=== PATIENT | female | born 1950 | race Caucasian/White ===

== ENCOUNTER 2018-10-13 07:35 | Day surgery (SDC) | payer MEDICARE ==
[2018-10-12 10:35] LABS: HEMATOCRIT 41.9 % (36.0-48.0); HEMOGLOBIN 14.1 g/dL (12-16); MCH 29.3 pg (26.0-34.0); MCHC 33.7 g/dL (31.0-37.0); MCV 87.1 fL (80.0-100.0); MEAN PLATELET VOLUME 10.1 fL (7.4-10.4); RBC 4.81 10x6/uL (4.00-5.40); RDW 12.3 % (11.5-14.5); WBC 6.1 10x3/uL (4.8-10.8)
[2018-10-12 10:42] LABS: ANION GAP 10.5 mmol/L (8-16); CALCIUM 9.7 mg/dL (8.5-10.1); CARBON DIOXIDE 30.6 mmol/L (21.0-32.0); CREATININE - SERUM 1.1 mg/dL (0.6-1.3); POTASSIUM - SERUM 4.1 mmol/L (3.5-5.1)
[~2018-10-13] VITALS: Ht 170.2 cm; Wt 88.6 kg
--- NOTE | ~2018-10-13 | HEMODYNAMI ---
PATIENT:JIE FARRELL MEDICAL RECORD: [id number] : 54 [id number] ADMISSION DATE: 10/13/18 Generatedon:10/14/201814:04 Patient name: JIE FARRELL Patient #: [id number] SSN: : Date of study: 10/14/2018 Page: Of Hemodynamic Procedure Report Patient Data Patient Demographics Procedure consent was obtained First Name: JIE Gender: Female Last Name: JAMI : 1950 Middle Initial: KAI Age: 68 year(s) Patient #: [id number] Race: Unknown Additional ID: [id number] Contact details Address: [facility] [address] State: [place] City: [place] Zip code: [address] Past Medical History Allergies Allergen Reaction Date Comments Reported Iodine 10/14/2018 Admission Admission Data Admission Date: 10/13/2018 Admission Time: 7:35 Room #: .[facility]5 Height (in.): 67 BSA: 2 (m2) Height (cm.): 170.18 BMI: 30.54 (kg/m2) Weight (lbs.): 195 Weight (kg.): 88.45 Procedure Procedure Types Cath Procedure Peripheral Cath Diagnostic Procedure Wound Care Specialist Peripheral Procedures Nephro Nephrostomy w/ Ureteral Stent Procedure Description Procedure Date Procedure Date: 10/14/2018 Procedure Start Time: 13:41 Procedure Staff Name Function Noah Rivas MD Performing Physician Michelle Conn RT Tavern Car Attendant Nereida Jones RN Nurse Luz Elena Branch RN Nurse ELY RICO RT Scrub Procedure Data Cath Procedure Fluoroscopy Diagnostic fluoroscopy Total fluoroscopy Time: 0 time: 0 min min Contrast Material Contrast Material Type Amount (ml) Isovue 300 10 Procedure Medications Medication Administration Route Dosage Heparin Flush Bag added to field 2 bags (1000units/500ml NS) Lidocaine 1% added to field 20 unlisted medication 1 Hemodynamics Rest BSA: 2 (m2) O2 Consumption: Estimated: 187.14 (ml/min) O2 Consumption indexed: Estimated:93.57 (ml/min/m) Heart Rate: 71 (bpm) Snapshots Pre Cath Intra NCS Post Cath Vital Signs Time Heart Resp SPO2 etCO2 NIBP (mmHg) Rhythm Pain Sedation Rate (ipm) (%) (mmHg) Status Level (bpm) 12:47:42 70 18 98 35.3 150/77(121) NSR 0 (11) 9(A) , No pain 12:52:07 81 14 99 39.1 150/88(123) NSR 0 (11) 9(A) , No pain 12:56:25 73 15 99 26.3 157/88(130) NSR 0 (11) 9(A) , No pain 13:00:39 74 18 100 36.1 146/92(136) NSR 0 (11) 9(A) , No pain 13:04:55 71 18 99 34.6 151/86(122) NSR 0 (11) 9(A) , No pain 13:09:54 74 19 99 36.1 Measuring NSR 0 (11) 9(A) , No pain 13:10:14 75 19 98 34.6 151/70(120) NSR 0 (11) 9(A) , No pain 13:14:32 72 13 99 26.3 144/85(104) NSR 0 (11) 9(A) , No pain 13:18:54 72 14 99 35.3 158/78(121) NSR 0 (11) 9(A) , No pain 13:23:13 74 12 100 34.5 149/90(121) NSR 0 (11) 9(A) , No pain 13:27:29 83 18 100 33.8 142/82(112) NSR 0 (11) 9(A) , No pain 13:31:45 80 16 99 33.8 135/81(109) NSR 0 (11) 9(A) , No pain 13:36:44 82 13 98 31.5 Measuring NSR 0 (11) 9(A) , No pain 13:36:56 81 12 98 31.5 135/88(114) NSR 0 (11) 9(A) , No pain 13:41:08 80 16 98 34.5 142/80(112) NSR 0 (11) 9(A) , No pain 13:45:16 81 15 99 36 144/80(115) NSR 0 (11) 9(A) , No pain 13:50:09 79 15 100 35.3 137/80(114) NSR 0 (11) 9(A) , No pain 13:54:25 89 14 97 35.3 140/78(107) NSR 0 (11) 9(A) , No pain 13:59:05 87 16 98 33 138/80(105) NSR 0 (11) 9(A) , No pain 14:03:25 84 16 99 33.8 148/79(107) NSR 0 (11) 9(A) , No pain Medications Time Medication Route Dose Verified Delivered Reason Notes Effe ctiveness by by 12:46:58 Heparin Flush added 2 Noah Zamora used for Bag to bags Rob Rivas procedure (1000units/500ml field MD SOTO NS) 12:47:11 Lidocaine 1% added 20ml Noah Zamora for local to vial Rob Rivas anesthetic field MD SOTO 13:42:45 cefepime iv 1 gm Noah Laguna Per Rob Branch RN physician MD Procedure Log Time Note 12:28:04 Patient Height : 67 inches 12:28:08 Patient Weight : 195 lbs 12:28:36 Use device set IR Diagnostic 12:28:39 Sterile Angiographic Pack opened to sterile field. 12:28:40 Bag Decanter (2002S) opened to sterile field. 12:29:38 KIT, INTRODUCER ACCUSTICK II W/C ([id number]) opened to sterile field. 12:29:39 BAG, DRAINAGE EMPTY 600ML W/BREANNA (DTC805) opened to sterile field. 12:29:39 BENTSON 145cm wire ([id number]) opened to sterile field. 12:36:33 Time tracking: Regular hours (M-F 7:00 - 5:00) 12:37:40 Patient received from Med/Surg to IR Alert and oriented. Tansferred to table in Prone position. 12:37:45 Signed procedure consent form obtained from patient. 12:37:51 H&P Date Dictated: 10/14/2018 Within 30 days and on chart.. 12:37:56 Pre-procedure instructions explained to patient. 12:37:57 Pre-op teaching completed and patient verbalized understanding. 12:38:02 Family in waiting room. 12:38:05 Patient NPO since Midnight. 12:38:13 Patient allergic to Iodine 12:38:18 Is the patient allergic to Iodine/contrast media? Yes. 12:38:21 Was the patient premedicated? Yes 12:40:37 Patient diabetic? Yes. 12:40:39 If diabetic: On Metformin? Yes 12:40:54 If on Metformin: Last Dose? 10/12/2018 12:41:00 Is patient on blood thinner?No 12:46:33 Vital chart was started 12:46:58 Heparin Flush Bag (1000units/500ml NS) 2 bags added to field was administered by Noah Rivas MD; used for procedure; 12:47:11 Lidocaine 1% 20ml vial added to field was administered by Noah lopez MD; for local anesthetic; 12:49:20 - 12:49:29 ----Pre-sedation anethsthesia assessment.---- 12:49:36 Previous problem with sedation/anesthesia? No ? 12:49:41 Snore? Yes 12:49:46 Sleep apnea? No 12:49:50 Deviated septum? No 12:49:53 Opens mouth fully? Yes 12:49:57 Sticks out tongue? Yes 12:50:01 Airway obstruction? No ? 12:50:06 Dentures? No ? 12:50:15 IV patent on arrival in left hand with D5/.45%NaCl at [facility]. 12:50:24 Right Renal was prepped with chlora-prep and draped in sterile fashion. 12:50:27 - 12:50:35 ECG and BP/O2 sat monitors applied to patient. 12:50:36 Baseline sample Acquired. 12:50:38 Full Disclosure recording started 12:50:39 - 13:39:24 seeanesthesia notes for monitoring of patient during procedure 13:39:28 Physician arrived 13:39:41 --------ALL STOP TIME OUT------ 13:39:42 Final Timeout: patient, procedure, and site verified with staff and physician. All members of the team are in agreement. 13:40:01 Procedure started. 13:41:05 Local anesthetic to right renal area with Lidocaine 1% by Noah lopez MD.INITIAL ACCESS ONLY 13:42:45 cefepime 1 gm iv was administered by Luz Elena Branch RN; Per physician; 13:43:24 CHIBA 20 X 15 needle opened to sterile field. 13:51:16 Abscession 8Fr drainage catheter ([id number]) opened to sterile field. 13:53:55 STOPCOCK 3-Way Large Bore ([id number]) opened to sterile field. 13:54:51 SUTURE ETHILON 2-0 BLK MONO FS opened to sterile field. 13:56:22 Procedure ended.(Physican Out) 13:56:41 Fluoroscopy time 00.00 minutes. 13:56:54 Contrast amount:Isovue 300 10ml. 13:56:56 Procedure and supply charges have been captured, reviewed, submitted an d are correct. 14:02:04 Report given to Med/Surg. 14:04:18 Vital chart was stopped Device Usage Item Name Manufacture Quantity Catalog Hospital Part Current [facility] l Lot# / Number Charge Number Stock Stock Serial# Code Sterile Cardinal 1 [id number] 5 Angiographic Health Pack Bag Decanter Microtek 1 [id number] 96470 [id number] 5 () Medical Inc. KIT, [place] 1 [id number] 355881 881729 139694 5 [id number] INTRODUCER Scientific ACCUSTICK II W/C ([id number]) BAG, [facility] 1 [id number] 535874 982345 833442 5 DRAINAGE EMPTY 600ML W/BREANNA (BHH678) BENTSON [facility] 1 [id number] 970839 326374 5 145cm wire (N88081) CHIBA 20 X [facility] 1 X11530 906607 086464 5 [id number] 15 needle Abscession Angiodynamics 1 [id number] 926774 593623 863146 5 8Fr drainage catheter ([id number]) [facility] 1 W14187 838984 2491 891801 5 [id number] 3-Way Large Bore (U12467) SUTURE Ethicon 1 664H 582160 298959 5 ETHILON 2-0 BLK MONO FS Signature Audit [place] Stage Time Signature Unsigned Intra-Procedure 10/14/2018 Michelle Conn 2:04:14 PM RT(R) [facility] [address] [place] [address]
[~2018-10-13 07:35] MED LIST: GLUCOPHAGE1000 MG PO; LEVEMIR IN100 UNITS/ SC; LEVOXYL175 MCG PO; LISINOPRIL20 MG PO; METOPROLOL-HCT1 EACH PO; MULTI-DAY VITAM1 TAB PO; NORVASC5 MG PO; PAXIL40 MG PO
[2018-10-13 10:48] VITALS: BP 116/73; BMI 30.9
--- NOTE | 2018-10-13 13:37 | NUR ---
LITHOTRIPSY STOP TIME 2697
--- NOTE | 2018-10-13 13:45 | NUR ---
PATIENT IS BEING ADMITTED AND DR BUENO NEEDED FAMILY TO BE NOTIFIED. LOOKED IN COMPUTER AND NEXT OF KIN AND EMERGENCY CONTACT SHOWED TO BE PT. CALLED THE NUMBER BY PATIENT'S NAME AND REACHED AN ANSWERING MACHINE. RR CALLED AND SPOKE WITH SUKHDEEP DONATO RN REGARDING ANY NAME OF NUMBER ON FRONT OF CHART TO CONTACT. RELATED THERE WAS NOT ANY INFORMATION REGARDING NEXT OF KIN. SUKHDEEP RELATED HE WOULD HAVE RECOVERY NURSE JANES PARHAM RN ASK PATIENT FOR A CONTACT NAME AND NUMBER ONCE SHE WAS MORE AWAKE. WILL CALL AND INFORM FAMILY WHEN NAME AND NUMBER IS OBTAINED. PERSONAL BELONGINGS IN A BAG TO TAKE TO PATIENT ONCE IS SETTLED IN HER ROOM.
[2018-10-13 15:09] VITALS: BP 151/73
--- NOTE | 2018-10-13 15:12 | NUR ---
ARRIVED TO ROOM 2215 VIA STRETCHER AWAKE AND ALERT. RESP EVEN AND UNLABORED WITH NO DISTRESS NOTED. CAN VOICE NEEDS AND WANTS. NO C/O NOTED OR VOICED. C/O LOWER BACK PAIN RATING 8/10 ON PAIN SCALE.C/L IN REACH AT BEDSIDE.
--- NOTE | 2018-10-13 15:26 | OP ---
PATIENT NAME: JIE FARRELL MEDICAL RECORD: [id number] :54 LOCATION:[facility] ADMISSION DATE: SURGEON: CARMELO BUENO MD DATE OF OPERATION: 10/13/2018 SURGEON: Carmelo Bueno MD ANESTHESIA: General anesthesia by Bernie Burnette CRNA. DIAGNOSIS: Right proximal ureteral stone 10 x 25 mm in size. PROCEDURE: Right ESWL times 4000 shocks. FINDINGS: Large radiodense proximal ureteral stone about 10 x 25 mm in size. On cystoscopy, there are single ureteral orifices bilaterally, but no bladder tumors. I am unable to get a wire past the stone. ESTIMATED BLOOD LOSS: None. CLINICAL HISTORY: This is a 68-year-old female, who was referred with a 10 mm wide right proximal ureteral stone with severe right hydronephrosis on CT scan. This scan was done at another facility. The scan also shows large multiple gallstones in the gallbladder up to 3 cm in size. She continues to have right flank pain. She comes today to have lithotripsy as well as insertion of a right ureteral stent. SHE HAS ANAPHYLAXIS WITH IODINE FROM IVP CONTRAST. Therefore, we had to try to do all the procedures without IODINE. DESCRIPTION OF PROCEDURE: The patient was given induction of general anesthesia. The stone was visualized in 2 planes and we started treatment of the stones immediately. We moved up and down along the stone length to fragment the entire length of the stone. While the lithotripsy was proceeding, I placed a cystoscope in. Attempts to get a sensor and then a Glidewire past the stones were with futile. It just would not get past the stone. Therefore, I waited until the entire lithotripsy had been done and 4000 shocks had been administered to the stone. The stone was seen to break up radiographically. I was hoping that with the stone now broken up, I would be able to get a guidewire wire past it, but again I was unsuccessful to get any wire past the stone. I will place her in 23-hour observation. I will have interventional radiology place a right nephrostomy tube and hopefully try to pass a right antegrade ureteral stent. TRANSINT:[id number] Voice Confirmation ID: [id number] DOCUMENT ID: [id number] CARMELO BUENO MD at 0886 CC: [id number] DICTATION DATE: 10/13/18 1354 BARK SKINNER: 10/13/[address] [facility] [address] [id number]
--- NOTE | 2018-10-13 17:08 | NUR ---
SPOKE WITH PATIENT'S DAUGHTER. EXPLAINED DR BUENO ADMITTED HER AND SCHEDULED A PROCEDURE WITH IR TOMORROW, INFORMED MARGARITO WE WERE NOT ABLE TO REACH HER DUE TO NEXT OF KIN AND PERSON TO NOTIFY WAS THE PATIENT'S NAME AND NUMBER. GOT DAUGHTER'S NUMBER AND PUT ON INSIDE OF PATIENT'S CHART ON MED SURG. TOOK PATIENT'S PERSONAL BELONGINGS TO HER AND INFORMED HER THAT HER DAUGHTER SAID SHE WOULD BE COMING BY WHEN SHE GOT OFF WORK. VERBALIZED UNDERSTANDING.
[2018-10-13 17:09] VITALS: BP 121/64; Ht 170.2 cm; Wt 88.6 kg
[2018-10-13 17:59] VITALS: BP 121/64
[2018-10-13 19:58] VITALS: BP 108/65
--- NOTE | 2018-10-13 21:20 | NUR ---
PT C/O BURNING PAIN WHEN VOIDING. CALLED DR. BUENO FOR MED ORDERS. GAVE NORCO-10 PO. PT STATED WHEN REASSESSED THAT PAIN WAS GONE AND SHE IS VOIDING WITH LESS DIFFICULTY.
[2018-10-14] VITALS: BP 103/64
[2018-10-14 04:00] VITALS: BP 129/76
[2018-10-14 04:45] LABS: BASOPHILS 0.3 % (0-2); EOSINOPHILS 0 % (0-7); HEMOGLOBIN 13.5 g/dL (12-16); IMMATURE GRANULOCYTES 0.5 % (0-5); LYMPHOCYTES 10.7 % (15-50); MCH 29.4 pg (26.0-34.0); MCHC 32.9 g/dL (31.0-37.0); MEAN PLATELET VOLUME 11.2 fL (7.4-10.4); MONOCYTES 0.9 % (2-11); NEUTROPHILS 87.6 % (40-80); RBC 4.59 10x6/uL (4.00-5.40); RDW 12.2 % (11.5-14.5); WBC 6.5 10x3/uL (4.8-10.8)
[2018-10-14 04:48] LABS: MCV 89.3 fL (80.0-100.0); PLATELET COUNT 228 10x3/uL (130-400)
[2018-10-14 04:53] LABS: INR 1.06 (0.85-1.17); PROTIME 13.3 SECONDS (11.6-15.0)
[2018-10-14 05:07] LABS: ANION GAP 15.4 mmol/L (8-16); CARBON DIOXIDE 24.8 mmol/L (21.0-32.0); CREATININE - SERUM 1.2 mg/dL (0.6-1.3)
[2018-10-14 05:09] LABS: POTASSIUM - SERUM 5.2 mmol/L (3.5-5.1)
--- NOTE | 2018-10-14 05:22 | NUR ---
CRITICAL LAB 444 - CALLED DR. BUENO. ORDERED SLIDING SCALE INSULIN AC/HS FOR PT. TREAT ACCORDINGLY.
--- NOTE | 2018-10-14 08:00 | NUR ---
ASSESSMENT PER FLOW SHEET. PT IS WITHOUT DISTRESS.NPO FOR PROCEDURES
[2018-10-14 08:59] VITALS: BP 137/75
--- NOTE | 2018-10-14 10:42 | NUR ---
PT IS ANGRY THAT SHE HAS NOT GONE FOR HER PROCEDURE. SHE IS WANTING TO LEAVE THE HOSPITAL. CALL TO DR BUENO
--- NOTE | 2018-10-14 12:30 | NUR ---
TO IR VIA BED
--- NOTE | 2018-10-14 14:00 | NUR ---
BACK FROM IR VIA BED.PT IS WITHOUT DISTRESS. RIGHT NEPHROSTOMY TUBE HAS VERY DARK TEA COLORED URINE IN IT. PT DENIES NEEDS.CALL LIGHT IN REACH.
[2018-10-14 14:59] LABS: APPEARANCE TURBID (CLEAR); BILIRUBIN NEGATIVE (NEGATIVE); COLOR BROWN (YELLOW); GLUCOSE 1000 mg/dL (NEGATIVE); KETONE NEGATIVE (NEGATIVE); NITRITE NEGATIVE (NEGATIVE); PROTEIN 1+ mg/dL (NEGATIVE); SPECIFIC GRAVITY 1.015 (1.005-1.020); UROBILINOGEN NORMAL (NORMAL)
[2018-10-14 15:01] LABS: RED CELLS - URINE >50 /hpf (0-5); WHITE CELLS - URINE 0-5 /hpf (0-5)
[2018-10-14 15:24] LABS: BACTERIA MODERATE /hpf (NONE SEEN); EPITHELIAL CELLS 0-5 /hpf (0-5)
[2018-10-14] MEDS ORDERED: HYDROCODON-ACE1 EA10 PO (16:12)
--- NOTE | 2018-10-14 17:51 | NUR ---
LEFT UNIT VIA WHEELCHAIR FOR TRANSPORT HOME
--- NOTE | 2018-10-14 17:51 | NUR ---
IV DCD WITH CATH TIP INTACT. DISCHARGE INSTRUCTIONS WITH PT AND FAMILY. DRAIN TEACHING WITH PT AND FAMILY, STATED UNDERSTANDING
== END 2018-10-14 17:52 | disposition home or self-care (01) ==
LOC: D.MS 07:35 → D.PAN 07:35 → D.OPS 13:15 → D.PAN 13:15 → D.MS 14:50 → D.PAN 10-14 17:52
PROVIDERS: Anesthesiology; Radiology Diagnostic Radiology; ATTEND Urology
DX: N20.1 Calculus of ureter (principal)

== ENCOUNTER 2018-10-27 06:33 | Inpatient (IN) | payer MEDICARE ==
[2018-10-26 12:58] LABS: BASOPHILS 0.3 % (0-2); EOSINOPHILS 1.6 % (0-7); HEMATOCRIT 41.7 % (36.0-48.0); HEMOGLOBIN 14.2 g/dL (12-16); IMMATURE GRANULOCYTES 0.2 % (0-5); LYMPHOCYTES 19.7 % (15-50); MCH 29.4 pg (26.0-34.0); MCHC 34.1 g/dL (31.0-37.0); MCV 86.3 fL (80.0-100.0); MEAN PLATELET VOLUME 9.8 fL (7.4-10.4); MONOCYTES 5.8 % (2-11); NEUTROPHILS 72.4 % (40-80); PLATELET COUNT 238 10x3/uL (130-400); RBC 4.83 10x6/uL (4.00-5.40); RDW 12.2 % (11.5-14.5); WBC 11.1 10x3/uL (4.8-10.8)
[2018-10-26 13:01] LABS: ANION GAP 13.8 mmol/L (8-16); CALCIUM 9.7 mg/dL (8.5-10.1); CARBON DIOXIDE 28.3 mmol/L (21.0-32.0); CREATININE - SERUM 1.1 mg/dL (0.6-1.3); POTASSIUM - SERUM 4.1 mmol/L (3.5-5.1)
[2018-10-26 13:12] LABS: APTT 22.9 SECONDS (22.8-39.4); PROTIME 12.7 SECONDS (11.6-15.0)
--- NOTE | ~2018-10-27 | HEMODYNAMI ---
PATIENT:JIE FARRELL MEDICAL RECORD: [id number] : 54 LOCATION:[facility]# [id number] ADMISSION DATE: 10/27/18 Generatedon:10/27/20189:28 Patient name: JIE FARRELL Patient #: [id number] SSN: : Date of study: 10/27/2018 Page: Of Hemodynamic Procedure Report Patient Data Patient Demographics Procedure consent was obtained First Name: JIE Gender: Female Last Name: JAMI : 1950 [facility] Initial: KAI Age: 68 year(s) Patient #: [id number] Race: Unknown Additional ID: [id number] Contact details [address] [address] [place], [place] [address] State: [place] City: [place] Zip code: [address] Past Medical History Allergies Allergen Reaction Date Comments Reported Iodine 10/14/2018 Admission Admission Data Admission Date: 10/27/2018 Admission Time: 6:33 Procedure Procedure Types Cath Procedure Peripheral Cath Diagnostic Procedure Nephro Perc Neph Uret Cath Procedure Description Procedure Date Procedure Date: 10/27/2018 Procedure Start Time: 9:05 Procedure Staff Name Function Eric Tafoya MD Performing Physician Prabhjot Morataya RT Monitor ELY RICO RT Scrub Luz Elena Branch RN Nurse Nereida Jones RN Nurse Procedure Data Cath Procedure Fluoroscopy Diagnostic fluoroscopy Total fluoroscopy Time: 5.3 time: 5.3 min min Diagnostic fluoroscopy Total fluoroscopy dose: 60 dose: 60 mGy mGy Contrast Material Contrast Material Type Amount (ml) Isovue 300 10 Procedure Medications Medication Administration Route Dosage Heparin Flush Bag added to field 1 bags (1000units/500ml NS) Lidocaine 1% added to field 20 Versed I.V. 1 mg Fentanyl I.V. 50 mcg unlisted medication 1 Hemodynamics Rest Heart Rate: 69 (bpm) Snapshots Pre Cath Intra NCS Post Cath Vital Signs Time Heart Resp SPO2 etCO2 NIBP (mmHg) Rhythm Pain Sedation Rate (ipm) (%) (mmHg) Status Level (bpm) 8:51:25 72 26 94 0 159/90(128) NSR 0 (11) 10(A) , No pain 8:55:48 68 15 98 31.7 164/85(126) NSR 0 (11) 10(A) , No pain 9:00:06 67 16 98 31.7 149/81(112) NSR 0 (11) 10(A) , No pain 9:04:26 66 16 98 31 147/79(122) NSR 0 (11) 8(A) , No pain 9:08:44 68 16 98 31.7 150/80(116) NSR 0 (11) 8(A) , No pain 9:13:04 67 12 89 35.5 141/81(98) NSR 0 (11) 8(A) , No pain 9:17:20 67 12 95 34.7 148/82(108) NSR 0 (11) 8(A) , No pain 9:21:40 68 13 94 35.5 146/81(100) NSR 0 (11) 8(A) , No pain 9:25:56 68 12 94 34.7 140/85(103) NSR 0 (11) 8(A) , No pain Medications Time Medication Route Dose Verified Delivered Reason Notes Effec tiveness by by 9:01:02 Heparin Flush added 1 Eric Reyes used for Bag to bags Tafoya Tafoya procedure (1000units/500ml field MD SOTO NS) 9:01:18 Lidocaine 1% added 20ml Eric Reyes for local to vial Tafoya Tafoya anesthetic field MD SOTO 9:03:02 cefepime ivpb 1 gm Eric Laguna Per Michelet Branch RN physician 9:10:03 Versed I.V. 1 mg Eric Laguna for Michelet Branch RN sedation 9:10:15 Fentanyl I.V. 50 Eric Laguna for mcg Tafoyatoribio Branch RN sedation Procedure Log Time Note 8:41:35 Prabhjot Morataya RT (R) (CV) sent for patient. Start room use. 8:41:54 Time tracking: Regular hours (M-F 7:00 - 5:00) 8:42:01 Plan of Care:Hemodynamics will remain stable., Cardiac rhythm will remain stable., Comfort level will be maintained., Respiratory function will remain adequate., Patient/ family verbilizes understanding of procedure., Procedure tolerated without complication., Recovers from procedure without complications.. 8:42:11 Patient received from Outpatients to IR Alert and oriented. Tansferred to table in Supine position. 8:42:12 Correct patient and procedure confirmed by team. 8:42:14 Signed procedure consent form obtained from patient. 8:42:15 ECG and BP/O2 sat monitors applied to patient. 8:42:16 Full Disclosure recording started 8:42:21 Use device set IR Diagnostic 8:42:23 Bag Decanter (2002) opened to sterile field. 8:42:23 Sterile Angiographic Pack opened to sterile field. 8:42:32 8:42:39 H&P Date Dictated: 10/27/2018 H&P Addendum completed by physician on day of procedure. (MUST COMPLETE FOR ALL OUTPATIENTS). 8:42:40 Pre-procedure instructions explained to patient. 8:42:40 Pre-op teaching completed and patient verbalized understanding. 8:42:44 Family unavailable. 8:42:46 Patient NPO since Midnight. 8:42:52 Is the patient allergic to Iodine/contrast media? Yes. 8:42:57 Was the patient premedicated? Yes 8:42:59 Is patient on blood thinner?No 8:43:01 Patient diabetic? Yes. 8:43:03 If diabetic: On Metformin? No 8:43:04 8:43:05 ----Pre-sedation anethsthesia assessment.---- 8:43:09 Previous problem with sedation/anesthesia? No ? 8:43:10 Snore? Yes 8:43:16 Sleep apnea? No 8:43:20 Deviated septum? No 8:43:21 Opens mouth fully? Yes 8:43:22 Sticks out tongue? Yes 8:43:24 Airway obstruction? No ? 8:43:26 Dentures? No ? 8:45:21 IV patent on arrival in right hand with 0.9% NaCl at [facility]. 8:45:32 Lumbar area was prepped with chlora-prep and draped in sterile fashion 8:45:34 Alarms reviewed by R. N. 8:45:34 Sharps counted by scrub and verified by R.N. 8:50:18 Vital chart was started 8:56:31 Baseline sample Acquired. 9:01:02 Heparin Flush Bag (1000units/500ml NS) 1 bags added to field was administered by Eric Tafoya MD; used for procedure; 9::18 Lidocaine 1% 20ml vial added to field was administered by Eric Tafoya MD; for local anesthetic; 9:03:02 cefepime 1 gm ivpb was administered by Luz Elena Branch RN; Per physician; 9:04:00 Physician arrived 9:04:01 --------ALL STOP TIME OUT------ 9:04:01 Final Timeout: patient, procedure, and site verified with staff and physician. All members of the team are in agreement. 9:04:05 Lumbar site verified by team. 9:04:13 Maximum allowable Isovue 300 dose 300\ml. Physician notified. (300ml for normal creatinines. For patients with creatinine of 1.7 or higher multiply weight(kg) x 5 divided by creatinine.) 9:04:17 Fire Safety Assessment: A--An alcohol-based skin anteseptic being used preoperatively., C--Open oxygen or nitrous oxide is being used. 9:04:22 Sedation plan: IV Moderate Sedation Medication:Versed, Fentanyl 9:05:01 Procedure started. 9:05:09 Local anesthetic toRIGHT Lumbar area with Lidocaine 1% by Eric Tafoya MD.INITIAL ACCESS ONLY 9:05:44 GLIDE CATHETER 5FR ANGLED 65cm (CG507) opened to sterile field. 9:05:44 [facility] .035 145 glide wire (S40800) opened to sterile field. 9:10:03 Versed 1 mg I.V. was administered by Luz Elena Branch RN; for sedation; 9:10:15 Fentanyl 50 mcg I.V. was administered by Luz Elena Branch RN; for sedation; 9:17:56 GLIDE WIRE Angled Super Stiff 180cm ([id number]) opened to sterile field. 9:20:46 Tegaderm 6 x 8 (1628) opened to sterile field. 9:20:59 Procedure ended.(Physican Out) 9:21:31 Fluoroscopy time 05.30 minutes. 9:21:38 Flurop Dose total: 60 9:21:38 Fluoroscopy dose: 60 mGy 9:21:51 Contrast amount:Isovue 300 10ml. 9:23:36 Sharps counted by scrub and verified by R.N. 9:23:38 Insertion/operative site no bleeding no hematoma. 9:23:56 Post-op/insertion site Right Lumbar area dressed using a 4 x 4 and Tegaderm. 9:24:07 Post Lumbar area:stable 9:25:03 Post procedure instruction explained to patient.Patient verbalizes understanding. 9:25:04 Procedure and supply charges have been captured, reviewed, submitted and are correct. 9:27:18 Report given to Outpatients. 9:27:36 Patient transfered to Outpatients with Stretcher. 9:28:17 Vital chart was stopped Device Usage Item Name Manufacture Quantity Catalog Hospital Part Current Minimal Lot# / Number Charge Number Stock Stock Serial# Code Bag Decanter Microtek 1 [id number] 5 () Medical Inc. Sterile Cardinal 1 [id number] 910324 665539 5 Angiographic Health Pack GLIDE Terumo 1 [id number] 321219 437160 5 CATHETER 5FR ANGLED 65cm (CG507) [facility] 1 [id number] 290336 095890 978124 5 [id number] .035 145 glide wire ([id number]) GLIDE WIRE Terumo 1 CG2280 149735 010145 5 Angled Super Stiff 180cm (NP3226) Tegaderm 6 x 3M 1 1628 [id number] [id number] 5 8 (1628) Signature Audit [place] Stage Time Signature Unsigned Intra-Procedure 10/27/2018 Prabhjot 9:28:13 AM [place] RT (R) (CV) Signatures Monitor : Prabhjot Signature : [place] RT Date : Time : [address] [place] [address]
[~2018-10-27 06:33] MED LIST changes: +HYDROCODON-ACE1 EA10 PO
[2018-10-27 08:11] VITALS: BP 148/90; BMI 30.4
--- NOTE | 2018-10-27 15:09 | NUR ---
SUPINE ON BED FOR CYSTO, THEN FLIPPED PRONE ONTO PADDED LARA FRAME. PRESSURE POINTS PADDED.
[2018-10-27 17:19] VITALS: BP 121/70
[2018-10-27 17:37] VITALS: BP 121/70; BMI 30.4
--- NOTE | 2018-10-27 17:43 | NUR ---
TO ROOM 2217 FROM PACU VIA BED. PT IS WITHOUT DISTRESS.RIGHT NEPHROSTOMY TUBE HAD RED TINTED URINE IN BAG. RODRIGUEZ TO GRAVITY WITH RED TINTED URINE.PT DENIES PAIN.ORIENTATION TO ROOM.CALL LIGHT IN REACH.
--- NOTE | 2018-10-27 18:51 | NUR ---
PT IS EATING DINNER. SHE IS WITHOUT DISTRESS.FAMILY AT BEDSIDE
[2018-10-27 20:38] VITALS: BP 117/57
--- NOTE | 2018-10-27 22:15 | NUR ---
PT ALERT & ORIENTED. FSBS 579 - ORDERED STAT GLUCOSE AND REPORTED TO DR. BUENO. PUT PT ON SLIDING SCALE. GAVE 28 UNITS REG INSULIN PER SS AND PROVIDED SNACK. LAB GLUCOSE TAKEN BEFORE INSULIN GIVEN RESULTED 506. WILL RECHECK IN ONE HOUR. NO OTHER NEEDS. WILL CONTINUE TO MONITOR.
[2018-10-28 01:22] VITALS: BP 95/48
--- NOTE | 2018-10-28 04:14 | NUR ---
RIGHT HAND IV LEAKING. REMOVED CATHETER INTACT. NO IV FLUIDS OR MEDS ORDERED. PT SAYS SHE WOULD LIKE IV LEFT OUT FOR NOW IF NOT NEEDED. OXYGEN SAT 97-98% ON 1L/NC. REMOVED OXYGEN AND WILL MONITOR. PT ASKED TO HAVE BREAK FROM SCD'S. TOOK THOSE OFF FOR NOW ALSO.
[2018-10-28 05:40] VITALS: BP 88/46
--- NOTE | 2018-10-28 07:50 | NUR ---
PT RESTING IN BED NO ACUTE DISTRESS. REPORTS PAIN 6/10 AT THIS TIME, BUT VOICES WISHES FOR PAIN MEDICATION TO BE ADMINISTERED WITH BREAKFAST. F/C PATENT/RIGHT NEPHROSTOMY PATENT TO GRAVITY, DRAINING BLOOD COLORED URINE. DENIES FURTHER NEEDS AT THIS TIME. CL WITHIN REACH. ENCOURAGED TO CALL WITH NEEDS. CONTINUE POC
[2018-10-28 08:50] VITALS: BP 92/47
--- NOTE | 2018-10-28 11:09 | OP ---
PATIENT NAME: JIE FARRELL MEDICAL RECORD: [id number] LOCATION:[id number] ADMISSION DATE:10/27/18 SURGEON: LAURA BUENO MD DATE OF OPERATION: 10/27/2018 SURGEON: Laura Bueno MD ANESTHESIA: General anesthesia by Ulysses Colón MD DIAGNOSES: Right renal stone, possible right ureteropelvic junction obstruction. SPECIMENS: Right renal stone. PROCEDURE: Right percutaneous nephrolithotomy. FINDINGS: Small radiodense residual stones in the ureteropelvic junction. BLOOD LOSS: Minimal. CLINICAL HISTORY: This is a 68-year-old female who initially presented with imaging from an outside source. The outside source reported that she had a 10-mm stone in the right proximal ureter. She was brought to lithotripsy and the stone was radiodense. The stone was found to be extremely long, more like 10 x 20 mm in size. It was fragmented into smaller pieces with lithotripsy, but I could not get a stent into the kidney because of the tortuosity of ureter and ureteral edema where the stone had been lodged. The tortuosity of the ureter led me to contemplate whether or not she might have a retrocaval ureter on the right side. She was then admitted and she had a right nephrostomy tube placed for renal drainage. Followup x-rays showed the persistence of the stones. She comes now for a right percutaneous nephrolithotomy to clean out the stones. SHE IS ALLERGIC TO IODINE. She was given Ancef on-call to the OR. Earlier today, interventional radiology by Dr. Tafoya placed a nephroureteral access to replace the right nephrostomy tube. On reviewing the images, it seems that the ureter does go quite straight and it is not retrocaval. Most likely, her previous ureteral edema has subsided. I do not see any obvious radiodense stones on the ureteral access imaging today. DESCRIPTION OF PROCEDURE: The patient was given induction of general anesthesia in supine position. Her legs were frog legged and I placed rigid cystoscope in and withdrew the nephroureteral catheter distal end from the bladder and pulled it out through the urethra. This will allow one of our access wires to come out through the urethra where we can clamp it with a hemostat to prevent loss of the access. The patient was then turned into prone position on the Jose Juan frame. She was then prepped and draped. Through the nephroureteral access, I inserted an Amplatz Super Stiff wire. It came out through the urethra and circulating nurse placed a hemostat on it. This allowed me to remove the nephroureteral access catheter entirely. A #10 blade was used to make an incision on either side of the Super Stiff wire. A dual-lumen catheter was then inserted over the Super Stiff wire into the proximal ureter. A Glidewire was then inserted through the second lumen of the dual lumen catheter and into the ureter and down into the bladder. The dual lumen catheter was then removed, leaving the [address] The Glidewire was clamped to the drapes to act as a safety wire. I worked over the Super Stiff wire. The balloon dilator was introduced. This was the [employer] NephroMax. The tract was dilated to 20 atmospheres and OPERATIVE REPORT [id number] JIE FARRELL the working sheath was placed. The balloon was then deflated completely and removed. A nephroscope was introduced. A very distended hydronephrotic renal pelvis was seen. I followed the guidewires through the ureteropelvic junction. Here, we saw some residual stone fragments. Using the Portuguese LithoClast with ultrasonic modality, I was able to suction out the small stone fragments. At this point, the scope was already at its hub against the patient's skin. I could not see any further. Fluoroscopy along the length of the wires revealed no radiodense stones. I did request for a flexible nephroscope; however, none was available to be usable immediately. Therefore, I decided to abandon further imaging and attempts to look at the ureteral stones because what we have seen so far are just tiny small specks. The nephroscope was removed. Over the Super Stiff wire, a 24-Chinese Malecot nephrostomy tube was introduced into the renal pelvis. The Malecot wings were seen to expand within the renal pelvis. The wires were removed entirely. The working sheath was removed. The drain was sutured to the skin using 2-0 nylon. This was put to bag drainage. Dressings were applied. The patient was awakened and brought to the recovery room. In about 2 days' time, if the nephrostomy drainage remains clear, she will have the nephrostomy tube removed and she will be discharged home. TRANSINT:[id number] Voice Confirmation ID: [id number] DOCUMENT ID: [id number] LAURA BUENO MD at 1109 CC: [id number] DICTATION DATE: 10/27/18 1549 GEROPSYCHOLOGIST: 10/27/18 1821 ADM IN [facility] [address] [place] [address]
[2018-10-28 12:57] VITALS: BP 99/46
[2018-10-28 16:58] VITALS: BP 108/58
--- NOTE | 2018-10-28 17:45 | NUR ---
PT DISCHARGE PAPERWORK PROVIDED WITH PRESCRIPTION. EDUCATED PT REGARDING FOLLOW UP APPOINTMENT WITH DR BUENO IN ONE WEEK. DISCONTINUED RODRIGUEZ CATH, 10ML SALINE REMOVED FROM BULB CATH INTACT. NEPHROSTOMY TUBE INTACT AND DRAINING TO RIGHT FLANK. EDUCATED PT AND FAMILY REGARDING KEEPING AREA CLEAN AND DRY AND UTILIZING LEG BAG FOR CONVIENENCE AND PRIVACY. PT DENIES ANY QUESTIONS AT THIS TIME. PT TAKEN OUT VIA W/C TO PRIVATE VEHICLE WITH ALL PERSONAL BELONGINGS.
[2018-11-04 17:07] LABS: CALCULI - CA OXALATE MONOHYDR 95 % (()); CALCULI - COLOR Brown (()); CALCULI - COMMENT Note: (()); CALCULI - WEIGHT 66.6 mg (())
== END 2018-10-28 18:26 | disposition home or self-care (01) | DRG 661 ==
LOC: D.PAN 06:33 → D.OPS 10:30 → D.PAN 10:30 → D.MS 16:12
PROVIDERS: Specialist; ADMIT Urology; ATTEND Urology
PROC: 0T133JD Bypass Right Kidney Pelvis to Cutaneous with Synthetic Substitute, Percutaneous Approach (ICD-10-PCS; 2018-10-27)
PROC: 0TC68ZZ Extirpation of Matter from Right Ureter, Via Natural or Artificial Opening Endoscopic (ICD-10-PCS; principal; 2018-10-27 08:30)
DX: N20.0 Calculus of kidney (principal)

== ENCOUNTER → 2018-11-11 16:40 | Outpatient (CLI) | payer MEDICARE ==
[2018-10-27 17:37] VITALS: BMI 30.4
== END | disposition home or self-care (01) ==
LOC: D.LABREF 16:40
PROVIDERS: ATTEND Urology
DX: R31.9 Hematuria, unspecified (principal)

== ENCOUNTER 2018-11-30 05:42 | Day surgery (SDC) | payer MEDICARE ==
[~2018-11-30] VITALS: Ht 170.2 cm; Wt 84.4 kg
[2018-11-30 06:02] LABS: HEMATOCRIT 39.9 % (36.0-48.0); HEMOGLOBIN 13.2 g/dL (12-16); MCH 28.8 pg (26.0-34.0); MCHC 33.1 g/dL (31.0-37.0); MCV 86.9 fL (80.0-100.0); MEAN PLATELET VOLUME 9.8 fL (7.4-10.4); RBC 4.59 10x6/uL (4.00-5.40); RDW 12.8 % (11.5-14.5); WBC 5.8 10x3/uL (4.8-10.8)
[2018-11-30 06:24] LABS: ANION GAP 12.4 mmol/L (8-16); CALCIUM 9.4 mg/dL (8.5-10.1); CARBON DIOXIDE 28.2 mmol/L (21.0-32.0); CREATININE - SERUM 0.9 mg/dL (0.6-1.3); POTASSIUM - SERUM 3.6 mmol/L (3.5-5.1)
[2018-11-30 07:16] VITALS: BP 149/79; Ht 170.2 cm; Wt 84.4 kg
[2018-11-30] MEDS ORDERED: HYDROCODON-ACE1 EAC7 PO (08:50)
--- NOTE | 2018-11-30 09:35 | NUR ---
REC'D FROM [facility]. NO ONE AT BEDSIDE. DRESSING CDI TO FOUR ABDOMINAL SURGICAL INCISIONS. ICE PACK GIVEN TO PATIENT. DC CRITERIA EXPLAINED TO PT. VERBALIZED UNDERSTANDING.
--- NOTE | 2018-11-30 10:05 | NUR ---
TOLERATED FL DIET. DENIES NEEDS. NO VOID AT THIS TIME. IV FLUID INFUSING.
--- NOTE | 2018-11-30 10:20 | NUR ---
PT DENIES NEED TO URINATE.
--- NOTE | 2018-11-30 10:35 | NUR ---
AMBULATED TO THE BATHROOM.
--- NOTE | 2018-11-30 10:45 | NUR ---
VOIDED WITHOUT DIFFICULTY.
--- NOTE | 2018-11-30 10:50 | NUR ---
IV DC'D WITH CATHETER INTACT.
--- NOTE | 2018-11-30 10:55 | NUR ---
WRITTEN AND VERBAL DC INST. GIVEN TO PT. VERBALIZED UNDERSTANDING.
--- NOTE | 2018-11-30 11:45 | NUR ---
TRANSPORTATION HERE. DC'D HOME WITH FAMILY VIA PRIVATE VEHICLE. STABLE AT TIME OF DC.
== END 2018-11-30 11:45 | disposition home or self-care (01) ==
LOC: D.OPS 05:42 → D.PAN 08:15 → D.OPS 08:15
PROVIDERS: Anesthesiology; ATTEND Surgery
DX: K80.10 Calculus of gallbladder with chronic cholecystitis without obstruction (principal); Z01.812 Encounter for preprocedural laboratory examination

== ENCOUNTER 2020-02-08 10:16 | Emergency (ER) | payer MEDICARE ==
[~2020-02-08] VITALS: Ht 170.2 cm; Wt 81.8 kg
[~2020-02-08 10:16] MED LIST changes: +HYDROCODON-ACE1 EAC7 PO
[2020-02-08 10:36] VITALS: Ht 170.2 cm; Wt 81.8 kg
[2020-02-08] MEDS ORDERED: TOPROL XL50 MG (10:39)
[2020-02-08] MEDS ORDERED: ZITHROMAX 500M500 MG (10:40)
[2020-02-08] MEDS ORDERED: PHENERGAN6.25 MG/5 (10:40)
[2020-02-08] MEDS ORDERED: REXULTI1 MG (10:40)
[2020-02-08] MEDS ORDERED: PREDNISONE5 MG (10:41)
[2020-02-08 11:55] LABS: BASOPHILS 0.3 % (0-2); EOSINOPHILS 2.4 % (0-7); HEMATOCRIT 43.6 % (36.0-48.0); HEMOGLOBIN 14.7 g/dL (12-16); IMMATURE GRANULOCYTES 0.2 % (0-5); LYMPHOCYTES 34.5 % (15-50); MCH 29.9 pg (26.0-34.0); MCHC 33.7 g/dL (31.0-37.0); MCV 88.6 fL (80.0-100.0); MEAN PLATELET VOLUME 9.7 fL (7.4-10.4); MONOCYTES 6.9 % (2-11); NEUTROPHILS 55.7 % (40-80); RBC 4.92 10x6/uL (4.00-5.40); RDW 12.4 % (11.5-14.5); WBC 6.7 10x3/uL (4.8-10.8)
[2020-02-08 11:56] LABS: PLATELET COUNT 209 10x3/uL (130-400)
[2020-02-08 12:17] LABS: ALBUMIN 3.9 g/dL (3.4-5.0); ANION GAP 10.4 mmol/L (8-16); BILIRUBIN - TOTAL 0.52 mg/dL (0.2-1.3); CALCIUM 9.8 mg/dL (8.5-10.1); CARBON DIOXIDE 31.9 mmol/L (21.0-32.0); CREATININE - SERUM 1.4 mg/dL (0.6-1.3); POTASSIUM - SERUM 4.3 mmol/L (3.5-5.1); PROTEIN - SERUM 7.9 g/dL (6.4-8.2)
[2020-02-08] MEDS ORDERED: TESSALON PERLE100 MG PO (15:59)
[2020-02-08 16:48] VITALS: BP 161/78
== END 2020-02-08 16:50 | disposition home or self-care (01) ==
LOC: D.ER 10:16
PROVIDERS: Family Medicine
DX: J11.1 Influenza due to unidentified influenza virus with other respiratory manifestations (principal); E11.65 Type 2 diabetes mellitus with hyperglycemia; E11.22 Type 2 diabetes mellitus with diabetic chronic kidney disease; N18.9 Chronic kidney disease, unspecified; T42.6X5A Adverse effect of other antiepileptic and sedative-hypnotic drugs, initial encounter; I12.9 Hypertensive chronic kidney disease with stage 1 through stage 4 chronic kidney disease, or unspecified chronic kidney disease; Z79.4 Long term (current) use of insulin